=== PATIENT | female | born 1985 | race Asian ===

== ENCOUNTER 2022-11-10 13:53 | Emergency (ER) | payer BC ==
[2022-11-10 14:02] VITALS: BP 145/104; PULSE 111; O2SAT 97
[2022-11-10] MEDS ORDERED: LIDOcaine 5% patch TP STA (14:58)
[2022-11-10] MEDS ORDERED: HYDROcodone/acetaminophen 10/325mg tab PO ONE (15:00)
[2022-11-10] MEDS ORDERED: HYDR-3973 PO (15:08)
[2022-11-10 15:09] VITALS: RESP 16
== END 2022-11-10 16:25 | disposition home or self-care (01) ==
LOC: ER 13:54
DX: M79.601 Pain in right arm (principal); M54.2 Cervicalgia; Z79.899 Other long term (current) drug therapy
CPT/HCPCS: 99283